=== PATIENT | female | born 1985 | race Caucasian/White ===

== ENCOUNTER → 2019-09-11 14:48 | Outpatient (CLI) | payer OTHER, SELFPAY ==
[2019-09-11 17:17] LABS: Hematocrit 43.5 % (37-47); Hemoglobin 14.7 g/dL (12.0-15.0); Mean Corp Hgb Conc 33.8 g/dL (32-36); Mean Corpuscular Hgb 30.2 pg (27.0-32.0); Mean Corpuscular Volume 89.5 fL (81-99); Mean Platelet Vol. 10.1 fl (6.2-12.0); Platelet Count 312 K/mm3 (150-450); RBC Distribution Width CV 12.6 % (11.6-14.6); RBC Distribution Width SD 41.2 fl (35.1-43.9); Red Blood Count 4.86 M/mm3 (4.2-5.4); White Blood Count 10.1 K/mm3 (4.4-11.0)
[2019-09-11 17:37] LABS: Free T3 2.8 pg/mL (2.18-3.98); T4 Free Direct 1.26 ng/dL (0.76-1.46); Thyroid Stim Hormone (TSH) 1.89 uIU/mL (0.358-3.74)
[2019-09-15 12:07] LABS: Age Gdln ACOG Testing 30-65 (.)
[2019-09-15 15:01] LABS: HPV APTIMA, High Risk Negative (Negative)
[2019-09-15 15:02] LABS: HPV Reflexed? YES, CHARGE PATIENT
== END ==
PROVIDERS: Visit Provider Obstetrics & Gynecology
DX: N92.5 Other specified irregular menstruation (principal); Z12.4 Encounter for screening for malignant neoplasm of cervix
CPT/HCPCS: 36415; 84439; 84443; 84481; 85027; 87624; 88175; G0145